=== PATIENT | female | born 1975 | race Caucasian/White ===

== ENCOUNTER 2017-02-13 21:22 | Emergency (ER) | payer OTHER, BC ==
--- NOTE | 2017-02-13 21:33 | PDOC ---
History of Present Illness - General Chief Complaint: Nasal Bleeding Stated Complaint: NOSEBLEED History Source: Patient, Significant Other Exam Limitations: No Limitations - History of Present Illness Initial Comments: 02/13/17 23:19 CHIEF COMPLAINT: 41-year-old female on Coumadin for congenital heart disease presents with a nosebleed. HISTORY OF PRESENT ILLNESS: Patient has a history of single ventricle, tricuspid atresia, transposition of the great vessels, and other congenital heart anomalies. She also has a history of a CVA. She is maintained on Coumadin for heart disease and for prevention of stroke. Patient has a history of recurrent nosebleeds. Today she was in her usual state of health when she developed a nosebleed from her right nostril during dinner. There was blood going into the back of her throat and it was very uncomfortable. She placed gauze in her nose and the bleeding appeared to stop. She came to the ED for further evaluation. There is no syncope. There is no dizziness. Her last INR was checked on Thursday of this week and was 3.0. Her target goal is 2.0-3.0. She is followed by cardiology at [facility]. In the ED, there was no active nosebleed. The patient irrigated the back of her throat to remove the old dried blood and she was observed with no further bleeding. REVIEW OF SYSTEMS: GENERAL/CONSTITUTIONAL: No fever or chills. No weakness. No weight change. HEAD, EYES, EARS, NOSE AND THROAT: No change in vision. No ear pain or discharge. No sore throat. Positive epistaxis, see history of present illness. No history of nasal trauma. CARDIOVASCULAR: No chest pain or shortness of breath. RESPIRATORY: No cough, wheezing, or hemoptysis. GASTROINTESTINAL: No nausea, vomiting, diarrhea or constipation. No rectal bleeding. GENITOURINARY: No dysuria, frequency, or change in urination. MUSCULOSKELETAL: No joint or muscle swelling or pain. No neck or back pain. SKIN AND BREASTS: No rash or easy bruising. NEUROLOGIC: No headache, vertigo, loss of consciousness, or loss of sensation. PSYCHIATRIC: No depression or anxiety. ENDOCRINE: No increased thirst. No abnormal weight change. HEMATOLOGIC/LYMPHATIC: No anemia, easy bleeding, or history of blood clots. Has occasional edema in her abdomen or ankles, none currently. ALLERGIC/IMMUNOLOGIC: No hives or skin allergy. No latex allergy. Past History - Past Medical History Allergies/Adverse Reactions: Allergies Allergy/AdvReac Type Severity Reaction Status Date / Time acetaminophen [From Percocet] Allergy Verified 02/13/17 21:26 cefaclor [From Ceclor] Allergy Verified 02/13/17 21:26 enalapril Allergy Verified 02/13/17 21:25 erythromycin base Allergy Verified 02/13/17 21:26 oxycodone HCl [From Percocet] Allergy Verified 02/13/17 21:26 Sulfa (Sulfonamide Allergy Verified 02/13/17 21:26 Antibiotics) Home Medications: Ambulatory Orders Baclofen 10 mg PO TID 02/13/17 Citalopram Hydrobromide [Citalopram HBr] 30 mg PO DAILY 02/13/17 Clonazepam [Klonopin -] 0.5 mg PO AM 02/13/17 Clonazepam [Klonopin] 1 mg PO HS 02/13/17 Colestipol HCl [Colestid] 2 gm PO BID 02/13/17 Gabapentin 300 mg PO AM 02/13/17 Gabapentin [Neurontin -] 600 mg PO HS 02/13/17 Lamotrigine [Lamictal] 100 mg PO HS 02/13/17 Lamotrigine [Lamictal] 200 mg PO AM 02/13/17 Levonorgestrel-Ethin Estradiol [Levora-28 Tablet] 1 each PO DAILY 02/13/17 Memantine HCl [Namenda -] 20 mg PO TID 02/13/17 Potassium Chloride 40 meq PO BID 02/13/17 Sildenafil Citrate [Sildenafil] 20 mg PO TID 02/13/17 Sotalol HCl [Betapace -] 40 mg PO HS 02/13/17 Sotalol HCl [Betapace -] 80 mg PO AM 02/13/17 Spironolactone 25 mg PO DAILY 02/13/17 Torsemide 50 mg PO BID 02/13/17 Warfarin Sodium [Coumadin] 4 mg PO DAILY 02/13/17 Zolpidem Tartrate [Ambien] 10 mg PO HS 02/13/17 Cardiac Disorders: Yes (congenital heart disease) CVA: Yes *Physical Exam - Physical Exam Comments: 02/13/17 23:21 GENERAL: The patient is awake, alert, and fully oriented, in no acute distress. HEAD: Normal with no signs of trauma. EYES: Pupils equal, round and reactive to light, extraocular movements intact, sclera anicteric, conjunctiva clear. ENT: Ears normal, nares patent, no bleeding from Samish box plexus, packing was initially in place with a piece of gauze and then was removed with no signs of active bleeding, oropharynx initially with dried blood, then patient rinsed her mouth and throat, repeat examination without any signs of active bleeding, tonsils clear without exudates. Moist mucous membranes. NECK: Normal range of motion, supple without lymphadenopathy, JVD, or masses. LUNGS: Breath sounds equal, clear to auscultation bilaterally. No wheezes, and no crackles. HEART: Regular rate and rhythm, normal S1 and S2 without murmur, rub or gallop. No abnormal heart sounds. ABDOMEN: Soft, nontender, normoactive bowel sounds. No guarding, no rebound. No masses. EXTREMITIES: Normal range of motion, no edema. No clubbing or cyanosis. No cords, erythema, or tenderness. NEUROLOGICAL: Cranial nerves II through XII grossly intact. Normal speech, normal gait. PSYCH: Normal mood, normal affect. SKIN: Warm, Dry, normal turgor, no rashes or lesions noted. Multiple old sternotomy and abdominal surgical scars. Positive increased pigmentation around the ankles consistent with chronic stasis, but no edema. ED Treatment Course - LABORATORY CBC & Chemistry Diagram: 02/13/17 22:42 Medical Decision Making - Medical Decision Making 02/13/17 23:23 Patient with history of congenital heart disease and stroke on Coumadin. She presents with epistaxis, onset during dinner. The bleeding was rapidly controlled in the ED. There were no signs of nasal lesions. There was no posterior bleeding on examination of the throat. The patient was observed over time in the ED without further symptoms. Laboratory workup reveals hemoglobin of 12 and INR of 2.9, in range. Given the absence of bleeding and the INR at target, patient is stable for discharge. 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 Laboratory Results - last 24 hr 02/13/17 02/13/17 22:42 22:42 WBC 5.0 RBC 3.90 Hgb 12.0 Hct 35.1 MCV 90.0 MCH 30.7 MCHC 34.1 RDW 12.6 Plt Count 125 L MPV 8.8 Neutrophils % 71.9 Lymphocytes % 20.3 Monocytes % 6.8 Eosinophils % 0.7 Basophils % 0.3 PT with INR 31.9 H INR 2.91 H *DC/Admit/Observation/Transfer Diagnosis at time of Disposition: Epistaxis - Discharge Dispostion Disposition: HOME Condition at time of disposition: Improved Admit: No - Referrals Referrals: Vianca Jain [Primary Care Provider] - 3 days - Patient Instructions Printed Discharge Instructions: DI for Nosebleed Additional Instructions: Today you were evaluated for a nosebleed. The hemoglobin level was checked and is normal at 12.0. The INR level was checked and is in range at 2.9. Your bleeding has resolved. If she should have recurrent nose bleeding, pack the nose with gauze and hold pressure for 10 minutes watching the clock. If the bleeding does not stop with pressure and gauze, return to the emergency department for further evaluation and treatment. Otherwise follow-up with your primary physician next week.
[2017-02-13 22:05] VITALS: BP 110/69; PULSE 83; TEMP 98.3; BMI 20.5
[2017-02-13 23:01] LABS: BASOPHIL 0.3 % (0-2.0); EOSINOPHIL 0.7 % (0-4.5); INR 2.91 (0.82-1.09); MCH 30.7 pg (25.7-33.7); MCHC 34.1 g/dl (32.0-36.0); MEAN PLT VOLUME 8.8 fl (7.5-11.1); NEUTROPHILS 71.9 % (42.8-82.8); PLATELET COUNT 125 K/MM3 (134-434); PROTHROMBIN TIME (PATIENT) 31.9 SEC (10.2-13.0); RDW 12.6 % (11.6-15.6)
== END 2017-02-13 23:30 | disposition home or self-care (01) ==
LOC: FER 21:22
DX: R04.0 Epistaxis (principal); Z79.01 Long term (current) use of anticoagulants; I51.9 Heart disease, unspecified
CPT/HCPCS: 36415; 85025; 85610; 99283-25